=== PATIENT | female | born 1985 | race Caucasian/White ===

== ENCOUNTER → 2018-12-03 | Outpatient (CLI) | payer OTHER | LOC: MERGE 09:04 → FIMAGING 09:04 | PROVIDERS: ATTEND Obstetrics & Gynecology | DX: Z34.03 Encounter for supervision of normal first pregnancy, third trimester (principal); Z3A.33 33 weeks gestation of pregnancy ==

== ENCOUNTER → 2018-12-24 | Outpatient (CLI) | payer OTHER | LOC: FIMAGING 08:33 → MERGE 08:45 | PROVIDERS: ATTEND Obstetrics & Gynecology | DX: Z36.4 Encounter for antenatal screening for fetal growth retardation (principal) ==

== ENCOUNTER 2019-01-10 18:03 | Inpatient (IN) | payer OTHER ==
[2019-01-10] MEDS ORDERED: OLIVE OIL 118 ML BTL MISC PRN (18:24)
[2019-01-10] MEDS ORDERED: OXYTOCIN/RINGERS LACTATE 1,000 ML IV PRN (18:24)
[2019-01-10] MEDS ORDERED: IBUPROFEN 600 MG TAB PO PRN (18:24)
[2019-01-10] MEDS ORDERED: MISOPROSTOL 200 MCG TAB PO PRN (18:24)
[2019-01-10] MEDS ORDERED: TERBUTALINE SULFATE 1 MG/ML VIAL IV PRN (18:24)
[2019-01-10] MEDS ORDERED: LIDOCAINE 1% 300 MG/30 ML SDV SC PRN (18:24)
[2019-01-10] MEDS ORDERED: AMMONIA AROMATIC 1 EACH AMP IH PRN (18:24)
[2019-01-10] MEDS ORDERED: EPSOM SALT 454 GM TP PRN (18:24)
--- NOTE | 2019-01-10 18:24 | PDGENHP ---
History and Physical - Chief Complaint IOL at 39wks, IUGR - History of Present Illness 33 yo G1 today at 38w6d presents for cervical ripening prior to IOL tomorrow at 39 wks for borderline IUGR with abnormal dopplers. She has been closed this week in clinic and is closed again here on arrival. Otherwise uncomplicated other than this issue of growth - EFW 13% following her 20wk scan, had consult with MFM and also found to have abnormal/elevated dopplers. Given that they recommended weekly doppler testing, monthly growth scans, and potentially delivery by 37 weeks. Ultimately those studies were reassuring and by the time she reached 37 wks her dopplers had actually normalized and EFW was stable at 14% - so they pushed the rec for delivery back to 39wks. CMV serologies negative from that workup. She has thyroid assymetry L>R - had endo consult 07/01/18 that revealed a 2.7cm cyst causing that - she now follows with endo ([place]) and plan to f/u as OP PP. Rh negative and received RhoGam at 28 wks. 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 Most recent growth US (12/24/18): Placental location: posterior no previa presentation: vertex Cervix: not well seen MVP: 5.8 cm Measurements: Biparietal diameter: 92 mm 37 weeks, 3 days Head circumference: 335 mm 38 weeks, 3 days Abdominal circumference: 312 mm 35 weeks, 1 days Femur length: 61 mm 31 weeks, 6 days Humerus length: 55 mm 31 weeks, 6 days Transcerebellar diameter: 20 mm 36 weeks, 5 days Average ultrasound age: 35 weeks, 5 days Estimated weight: 2509 gm weight percentile: 14 % labs: O neg Antibody neg RPR NR Rubella immune Hep B neg HIV neg CMV neg Pap ASCUS HPV neg GCC neg AFP neg Innatal normal Glucola 90 Rhogam given 10/29/18 GBS NEGATIVE VZV and Parvo IMMUNE History Information - Allergies/Home Medication List Allergies/Adverse Reactions: No Known Allergies Allergy (Unverified 12/30/18 14:20) I have personally reviewed and updated: family history, medical history, social history, surgical history Past Medical History: Thyroid assymetry/cyst, assymptomatic, Rh neg, HSV1 - Surgical History Reports: no pertinent surgical hx - Family History Positive for: non-pertinent Review of Systems Review of Systems: ROS: 10pt was reviewed & negative except for what was stated in HPI & below Physical Exam Physical Exam: Calm, comfortable, NAD. Abdomen soft, ND/NT, longitudinal lie. SCE closed/30/-2, mid position, medium consistency. FHR 130s, mod johnson, accels present, no decels. Assessment & Plan Assessment: 33 yo G1 at 38w6d here for cervical ripening/IOL for borderline IUGR. IOL: Unfavorable. Cervidil tonight, will be removed at 12 hrs tomorrow AM and rechecked for balloon vs Pitocin. IUGR: Dopplers recently normal with EFW 14% so less of a concern at this point. RH neg: will need screen and RHoGam PRN. Thyroid cyst: Low suspicion for malignancy per endo, f/u PP. HSV1: no meds. Rubella immune, VZV immune. ANABELL
[2019-01-10] MEDS ORDERED: DINOPROSTONE 10 MG VAG SUPP VG ONE (19:06)
[2019-01-10 20:37] LABS: PLATELET COUNT 115 10^3/uL (150-400)
[2019-01-11] MEDS ORDERED: LIDOCAINE 1% 300 MG/30 ML SDV ONE (07:46)
[2019-01-11] MEDS ORDERED: AMMONIA AROMATIC 1 EACH AMP IH ONE (07:46)
[2019-01-11] MEDS ORDERED: OLIVE OIL 118 ML BTL MISC ONE (07:46)
[2019-01-11] MEDS ORDERED: MISOPROSTOL 200 MCG TAB ONE (07:47)
[2019-01-11] MEDS ORDERED: TERBUTALINE SULFATE 1 MG/ML VIAL ONE (07:47)
[2019-01-11] MEDS ORDERED: OXYTOCIN 10 UNIT/ML VIAL ONE (07:47)
[2019-01-11] MEDS ORDERED: ACETAMINOPHEN 500 MG TAB PO ONE (09:11)
--- NOTE | 2019-01-11 09:28 | OBPROG ---
Labor Progress Note Assessment/Plan: Assessment: 33 y/o @ 39 wks for IOL secondary to borderline IUGR and previously abnormal dopplers Rh neg Plan: s/p Cervidil - placed at 1900 01/10 and removed at 0545 01/11 secondary to tachysystole SVE: 50/-2; vtx Vidal bulb placed and inflated with 40 cc NS; pt uncomfortable with placement and having lots of cramping Will give Tylenol ES for cramping per pt request May eat breakfast FHTs - Cat I tracing, reassuring Will start low dose Pitocin when ctx's space out GBS negative, no prophylactic abx needed 01/11/19 09:21 Subjective/Intrapartum Course: 01/11/19 09:28 Pt is tired and was up most of the night with lots of cramping; she slept for about 30 minutes. States good FM. Denies any LOF, but notes some min spotting when she wipes. Objective: 01/10/19 20:05 Patient ABO/Rh O NEGATIVE 01/10/19 20:05 - SVE Dilation (cm): 1 Effacement (%): 50 Station: -2 Membranes: Intact - Contraction Pattern Assessment Current Contraction Pattern: Regular (q2-4 min) - FHR Assessment [place] FHR (bpm): 140 FHR Pattern Variability: Moderate FHR Category: 1 - Procedures Non-surgical Procedures: Other (Specify) (Vidal bulb placement) - AP Antepartum Course: 01/11/19 09:30 Borderline IUGR dx at 20 weeks with EFW 13%; pt followed by MFM and had abnormal dopplers which resolved at 34 weeks (2/21); most recent EFW at 37 weeks was stable at 14%; reassuring testing Thyroid asymmetry L>R; Endo consult; L cyst 1.5 x 2.7cm, stable; asymptomatic Rh negative, received Rhogam 10/29/18 Oxytocin Orders Assessment - Pre-Induction/Augmentation Assessment Gestational Age: 38 week(s) and 6 day(s) ICD10 Worksheet Patient Problems: Problems Problem Status Onset Encounter for induction of labor Acute Placental insufficiency Acute - ICD10 Problem Qualifiers (1) Encounter for induction of labor (2) Placental insufficiency
[2019-01-11] MEDS ORDERED: LR 500 ML IV PRN (11:32)
[2019-01-11] MEDS: LR 1,000 ML IV PRN (11:54)
[2019-01-11] MEDS: OXYTOCIN/LR *LOW DOSE PROTOCOL IV SCH (11:54)
--- NOTE | 2019-01-11 12:51 | OBPROG ---
Labor Progress Note Assessment/Plan: Assessment: 33 y/o @ 39 wks for IOL secondary to borderline IUGR and previously abnormal dopplers Plan: s/p Cervidil - placed at 1900 01/10 and removed at 0545 01/11 secondary to tachysystole s/p urrutia bulb placed and inflated with 40 cc NS at 0900 Pitocin started at noon and currently at 3mu/min; pt justino well with mild cramping FHTs - Cat I tracing, reassuring 01/11/19 12:48 Subjective/Intrapartum Course: 01/11/19 09:28 Pt is tired and was up most of the night with lots of cramping; she slept for about 30 minutes. States good FM. Denies any LOF, but notes some min spotting when she wipes. 01/11/19 12:50 Pt is lying on her side on the couch and states much less discomfort; just some mild cramping noted. Good FM noted. Denies any LOF or VB/spotting. Objective: 01/10/19 20:05 Patient ABO/Rh O NEGATIVE 01/10/19 20:05 - SVE Membranes: Intact - Contraction Pattern Assessment Current Contraction Pattern: Regular (q2-4 min) - FHR Assessment [place] FHR (bpm): 130 FHR Pattern Variability: Moderate FHR Category: 1 - Procedures Non-surgical Procedures: Other (Specify) (Urrutia bulb placement) - AP Antepartum Course: 01/11/19 09:30 Borderline IUGR dx at 20 weeks with EFW 13%; pt followed by MFM and had abnormal dopplers which resolved at 34 weeks (2/21); most recent EFW at 37 weeks was stable at 14%; reassuring testing Thyroid asymmetry L>R; Endo consult; L cyst 1.5 x 2.7cm, stable; asymptomatic Rh negative, received Rhogam 10/29/18 Oxytocin Orders Assessment - Pre-Induction/Augmentation Assessment Gestational Age: 38 week(s) and 6 day(s) ICD10 Worksheet Patient Problems: Problems Problem Status Onset Encounter for induction of labor Acute Placental insufficiency Acute - ICD10 Problem Qualifiers (1) Encounter for induction of labor (2) Placental insufficiency
--- NOTE | 2019-01-11 23:11 | OBPROG ---
Labor Progress Note Assessment/Plan: Assessment: 33 y/o @ 39 wks for IOL secondary to borderline IUGR and previously abnormal dopplers Plan: s/p Cervidil - placed at 1900 01/10 and removed at 0545 01/11 secondary to tachysystole s/p urrutia bulb placed and inflated with 40 cc NS at 0900 and removed at 1900 this evening SVE: 3-4/75/-3; BBOW Attempted AROM but unsuccessful Pitocin at 15 mu/min; cont per protocol Will reassess in 2 hours and attempt AROM and placement of IUPC Pt to get in shower 01/11/19 23:12 Subjective/Intrapartum Course: 01/11/19 09:28 Pt is tired and was up most of the night with lots of cramping; she slept for about 30 minutes. States good FM. Denies any LOF, but notes some min spotting when she wipes. 01/11/19 12:50 Pt is lying on her side on the couch and states much less discomfort; just some mild cramping noted. Good FM noted. Denies any LOF or VB/spotting. 01/11/19 23:08 Pt states only mild cramping, nothing painful. She wants to get in the shower. Objective: 01/10/19 20:05 Patient ABO/Rh O NEGATIVE 01/10/19 20:05 - SVE Dilation (cm): 3 (3-4) Effacement (%): 75 Station: -3 Membranes: Intact - Contraction Pattern Assessment Current Contraction Pattern: Regular (q3-5 min) - FHR Assessment [place] FHR (bpm): 130 FHR Pattern Variability: Moderate FHR Category: 1 - Procedures Non-surgical Procedures: Other (Specify) (Urrutia bulb placement) - AP Antepartum Course: 01/11/19 09:30 Borderline IUGR dx at 20 weeks with EFW 13%; pt followed by MFM and had abnormal dopplers which resolved at 34 weeks (2); most recent EFW at 37 weeks was stable at 14%; reassuring testing Thyroid asymmetry L>R; Endo consult; L cyst 1.5 x 2.7cm, stable; asymptomatic Rh negative, received Rhogam 10/29/18 Oxytocin Orders Assessment - Pre-Induction/Augmentation Assessment Gestational Age: 38 week(s) and 6 day(s) ICD10 Worksheet Patient Problems: Problems Problem Status Onset Encounter for induction of labor Acute Placental insufficiency Acute - ICD10 Problem Qualifiers (1) Encounter for induction of labor (2) Placental insufficiency
--- NOTE | 2019-01-12 01:40 | OBPROG ---
Labor Progress Note Assessment/Plan: Assessment: 33 y/o @ 39 wks for IOL secondary to borderline IUGR and previously abnormal dopplers Plan: s/p Cervidil - placed at 1900 01/10 and removed at 0545 01/11 secondary to tachysystole s/p urrutia bulb placed and inflated with 40 cc NS at 0900 and removed at 1900 this evening SVE: unchanged despite bloody show and pt getting uncomfortable with ctx's Attempted AROM again and unsuccessful Pitocin now at 21 mu/min FHTs - Cat I tracing, reassuring Will reassess in a few hours 01/12/19 01:36 Subjective/Intrapartum Course: 01/11/19 09:28 Pt is tired and was up most of the night with lots of cramping; she slept for about 30 minutes. States good FM. Denies any LOF, but notes some min spotting when she wipes. 01/11/19 12:50 Pt is lying on her side on the couch and states much less discomfort; just some mild cramping noted. Good FM noted. Denies any LOF or VB/spotting. 01/11/19 23:08 Pt states only mild cramping, nothing painful. She wants to get in the shower. 01/12/19 01:39 Pt is s/p a shower and now getting uncomfortable with ctx's, states pain 6/10. She noticed blood on her sheets and again when she used the toilet and lost her mucus plug. Objective: 01/10/19 20:05 Patient ABO/Rh O NEGATIVE 01/10/19 20:05 - SVE Dilation (cm): 3 (3-4) Effacement (%): 75 Station: -3 Membranes: Intact (attempted AROM and unsuccessful) - Contraction Pattern Assessment Current Contraction Pattern: Regular (q2-5 min) - FHR Assessment [place] FHR (bpm): 130 FHR Pattern Variability: Moderate FHR Category: 1 - AP Antepartum Course: 01/11/19 09:30 Borderline IUGR dx at 20 weeks with EFW 13%; pt followed by MFM and had abnormal dopplers which resolved at 34 weeks (2); most recent EFW at 37 weeks was stable at 14%; reassuring testing Thyroid asymmetry L>R; Endo consult; L cyst 1.5 x 2.7cm, stable; asymptomatic Rh negative, received Rhogam 10/29/18 Oxytocin Orders Assessment - Pre-Induction/Augmentation Assessment Gestational Age: 38 week(s) and 6 day(s) ICD10 Worksheet Patient Problems: Problems Problem Status Onset Encounter for induction of labor Acute Placental insufficiency Acute - ICD10 Problem Qualifiers (1) Encounter for induction of labor (2) Placental insufficiency
--- NOTE | 2019-01-12 06:38 | OBPROG ---
Labor Progress Note Assessment/Plan: Assessment: 33 y/o @ 39 wks for IOL secondary to borderline IUGR and previously abnormal dopplers Plan: s/p Cervidil - placed at 1900 01/10 and removed at 0545 01/11 secondary to tachysystole s/p urrutia bulb placed and inflated with 40 cc NS at 0900 and removed at 1900 this evening SVE: unchanged Attempted AROM again and unsuccessful Pitocin now at 24 mu/min FHTs - Cat I tracing, reassuring Signed out patient to light armored reconnaissance officer doctor-Adenike Killian who will be taking over 01/12/19 06:34 Subjective/Intrapartum Course: 01/11/19 09:28 Pt is tired and was up most of the night with lots of cramping; she slept for about 30 minutes. States good FM. Denies any LOF, but notes some min spotting when she wipes. 01/11/19 12:50 Pt is lying on her side on the couch and states much less discomfort; just some mild cramping noted. Good FM noted. Denies any LOF or VB/spotting. 01/11/19 23:08 Pt states only mild cramping, nothing painful. She wants to get in the shower. 01/12/19 01:39 Pt is s/p a shower and now getting uncomfortable with ctx's, states pain 6/10. She noticed blood on her sheets and again when she used the toilet and lost her mucus plug. 01/12/19 06:36 Pt was able to sleep for a few hours, but states pain with ctx's still 6/10. Objective: 01/10/19 20:05 Patient ABO/Rh O NEGATIVE 01/10/19 20:05 - SVE Dilation (cm): 3 (3-4) Effacement (%): 75 (70) Station: -3 Membranes: Intact (attempted AROM and unsuccessful) - Contraction Pattern Assessment Current Contraction Pattern: Regular (q3-4 min) - FHR Assessment [place]ado FHR (bpm): 130 FHR Pattern Variability: Moderate FHR Category: 1 - AP Antepartum Course: 01/11/19 09:30 Borderline IUGR dx at 20 weeks with EFW 13%; pt followed by MFM and had abnormal dopplers which resolved at 34 weeks (2); most recent EFW at 37 weeks was stable at 14%; reassuring testing Thyroid asymmetry L>R; Endo consult; L cyst 1.5 x 2.7cm, stable; asymptomatic Rh negative, received Rhogam 10/29/18 Oxytocin Orders Assessment - Pre-Induction/Augmentation Assessment Gestational Age: 38 week(s) and 6 day(s) ICD10 Worksheet Patient Problems: Problems Problem Status Onset Encounter for induction of labor Acute Placental insufficiency Acute - ICD10 Problem Qualifiers (1) Encounter for induction of labor (2) Placental insufficiency
[2019-01-12] MEDS: LEVOTHYROXINE 25 MCG TAB PO SCH (07:00)
[2019-01-12] MEDS: LR 1,000 ML IV PRN (07:01)
--- NOTE | 2019-01-12 08:40 | OBPROG ---
Labor Progress Note Assessment/Plan: Assessment: 33 y/o @ 39 weeks IOL secondary to S<D and abnormal dopplers earlier in Plan: Successful AROM and placement of IUPC now. Contractions are not adequate now, we will change the pitocin bag and increase dose to achieve adequate contractions. 01/12/19 08:28 Subjective/Intrapartum Course: 01/11/19 09:28 Pt is tired and was up most of the night with lots of cramping; she slept for about 30 minutes. States good FM. Denies any LOF, but notes some min spotting when she wipes. 01/11/19 12:50 Pt is lying on her side on the couch and states much less discomfort; just some mild cramping noted. Good FM noted. Denies any LOF or VB/spotting. 01/11/19 23:08 Pt states only mild cramping, nothing painful. She wants to get in the shower. 01/12/19 01:39 Pt is s/p a shower and now getting uncomfortable with ctx's, states pain 6/10. She noticed blood on her sheets and again when she used the toilet and lost her mucus plug. 01/12/19 06:36 Pt was able to sleep for a few hours, but states pain with ctx's still 6/10. 01/12/19 08:26 Pt rested overnight. She had a light breakfast and is now ready to proceed with increased pitocin and active labor management. Currently contractions are mild. Objective: 01/10/19 20:05 Patient ABO/Rh O NEGATIVE 01/10/19 20:05 - SVE Dilation (cm): 4 Effacement (%): 50 Station: -2 Membranes: AROM, Intact (attempted AROM and unsuccessful) Amniotic Fluid Color: Clear - Contraction Pattern Assessment Current Contraction Pattern: Regular (q3-4 min), Irregular (Q 2 min Mvu) - FHR Assessment [place]ado FHR (bpm): 140 FHR Pattern Variability: Moderate FHR Category: 1 - Procedures Non-surgical Procedures: Amniotomy, Other (Specify) (Vidal bulb placement) - AP Antepartum Course: 01/11/19 09:30 Borderline IUGR dx at 20 weeks with EFW 13%; pt followed by MFM and had abnormal dopplers which resolved at 34 weeks (2/21); most recent EFW at 37 weeks was stable at 14%; reassuring testing Thyroid asymmetry L>R; Endo consult; L cyst 1.5 x 2.7cm, stable; asymptomatic Rh negative, received Rhogam 10/29/18 Oxytocin Orders Assessment - Pre-Induction/Augmentation Assessment Gestational Age: 38 week(s) and 6 day(s) ICD10 Worksheet Patient Problems: Problems Problem Status Onset Encounter for induction of labor Acute Placental insufficiency Acute
[2019-01-12] MEDS: OXYTOCIN/LR *LOW DOSE PROTOCOL IV SCH (08:59)
[2019-01-12] MEDS ORDERED: fentaNYL 2MCG/ML/BUP 0.1% RTU 100 ML BAG EP ONE (10:54)
[2019-01-12] MEDS ORDERED: PHENYLEPHRINE HCL 100 MCG/ML SYR ONE (10:54)
--- NOTE | 2019-01-12 11:25 | PREANESOB ---
Obstetric Pre-Anesthesia Info - General Info : 1 Para: 0 NICKY: 01/18/19 Gestational Age: 38 week(s) and 6 day(s) - Info Status: Full Term, [place]ado Monitors: External FHR Pattern: Reassuring - Labor Status Cervical Dilation per last OB SVE: 4 Station per last OB SVE: -2 Amniotic Fluid Color: Clear Indications for Labor Analgesia: Pain Control Labor Epidural: Proposed Anesthesia Allergies/Adverse Reactions: Allergy/AdvReac Type Severity Reaction Status Date / Time No Known Allergies Allergy Unverified 12/30/18 14:20 Home Medications: Medication Instructions Recorded Levothyroxine 1 tab PO DAILY 01/11/19 Caplet 1 tab PO DAILY 01/11/19 Visit Medications: Generic Name Dose Route Start Last Admin Trade Name Freq PRN Reason Stop Dose Admin Acetaminophen 650 mg 01/11/19 20:13 Tylenol PO 07/10/19 20:12 Q6H PRN Pain, Mild/Fever, Can Take PO Ammonia (Aromatic Spirit) 1 each 01/10/19 18:24 Ammonia Aromatic IH 01/20/19 18:23 ONCE PRN Fainting Oxytocin/Lactated Ringer's 1,000 mls @ 0 mls/hr 01/10/19 18:24 Pitocin 20 Units/Lr (Premix) IV PRN PRN Post bleeding As Directed Oxytocin/Lactated Ringer's 500 mls @ 0 mls/hr 01/11/19 12:00 01/12/19 08:59 Pitocin 30 Units/Lr (Premix) IV 07/10/19 11:59 500 mls CONT MADHURI Administration Protocol Per Protocol Lactated Ringer's 500 mls @ 0 mls/hr 01/11/19 11:32 Lactated Ringers IV 07/10/19 11:31 PRN PRN MATERNAL HYPOTENSION As Directed Ibuprofen 600 mg 01/10/19 18:24 Motrin PO ONCE PRN post , pain Levothyroxine Sodium 25 mcg 01/12/19 06:00 01/12/19 07:00 Synthroid PO 07/11/19 05:59 25 mcg DAILY AT 6AM MADHURI Administration Lidocaine HCl 300 mg 01/10/19 18:24 Lidocaine Hcl 1% SC 07/09/19 18:23 ONCE PRN episiotomy Magnesium Sulfate 454 gm 01/10/19 18:24 Epsom Salt TP 07/09/19 18:23 Q1H PRN perineal discomfort Misoprostol 800 - 1,000 mcg 01/10/19 18:24 Cytotec PO 07/09/19 18:23 ONCE PRN Vaginal Atony/Bleeding Sibley Oil 118 ml 01/10/19 18:24 Sweet Oil MISC 07/09/19 18:23 ONCE PRN perineal massage Terbutaline Sulfate 0.25 mg 01/10/19 18:24 Brethine IV 07/09/19 18:23 ONCE PRN Tachysystole Discontinued Medications Generic Name Dose Route Start Last Admin Trade Name Freq PRN Reason Stop Dose Admin Acetaminophen 1,000 mg 01/11/19 09:11 01/11/19 09:17 Tylenol PO 01/11/19 09:12 1,000 mg ONCE ONE Administration Ammonia (Aromatic Spirit) Confirm 01/11/19 07:46 Ammonia Aromatic Administered 01/11/19 07:47 Dose 1 each IH .STK-MED ONE Dinoprostone 10 mg 01/10/19 19:06 01/11/19 09:43 Cervidil VG 01/10/19 19:07 Not Given ONCE ONE Fentanyl/Bupivacaine HCl Confirm 01/12/19 10:54 Fentanyl/Bupivacaine/Ns 2 Mcg/Ml 0.1% (Premix Administered 01/12/19 10:55 Dose 100 ml EP .STK-MED ONE Lactated Ringer's 1,000 mls @ 0 mls/hr 01/10/19 18:24 01/12/19 07:01 Lr IV 01/11/19 18:23 1,000 mls PRN PRN Administration SEE PROTOCOL CONDITIONS Protocol Per Protocol Lidocaine HCl Confirm 01/11/19 07:46 Lidocaine Hcl 1% Administered 01/11/19 07:47 Dose 300 mg .ROUTE .STK-MED ONE Misoprostol Confirm 01/11/19 07:47 Cytotec Administered 01/11/19 07:48 Dose 1,000 mcg .ROUTE .STK-MED ONE Sibley Oil Confirm 01/11/19 07:46 Sweet Oil Administered 01/11/19 07:47 Dose 118 ml MISC .STK-MED ONE Oxytocin Confirm 01/11/19 07:47 Pitocin Administered 01/11/19 07:48 Dose 40 unit .ROUTE .STK-MED ONE Phenylephrine HCl Confirm 01/12/19 10:54 Neosynephrine Administered 01/12/19 10:55 Dose 1,000 mcg .ROUTE .STK-MED ONE Terbutaline Sulfate Confirm 01/11/19 07:47 Brethine Administered 01/11/19 07:48 Dose 1 mg .ROUTE .STK-MED ONE - Anesthesia History Response to Local Anesthetics: Normal Anesthesia & Operative History: No Prior Problems - Vital Signs Height/Weight (Nursing): Height 172.72 cm Weight 70.76 kg - Focused Exam Neck exam: FROM Mallampati Score: Class 2 Mouth exam: normal dental/mouth exam Pulmonary: no respiratory distress, no rales or rhonchi, clear to auscultation Cardiovascular: regular rate and rhythym, no murmur, rub, or gallop Labs: 01/10/19 20:05 Patient ABO/Rh O NEGATIVE 01/10/19 20:05
[2019-01-12] MEDS ORDERED: LR 500 ML IV SCH (11:30)
[2019-01-12] MEDS ORDERED: PHENYLEPHRINE HCL 100 MCG/ML SYR IVP PRN (11:40)
--- NOTE | 2019-01-12 11:40 | OBPROG ---
Labor Progress Note Assessment/Plan: Assessment: 33 y/o @ 39 weeks IOL secondary to S<D and abnormal dopplers earlier in Plan: Good cervical progression after AROM. Pt is now comfortable with her epidural. We will continue pitocin and allow patient to rest. Increase dose to attain adequate Mu. 01/12/19 08:28 01/12/19 11:35 Subjective/Intrapartum Course: 01/11/19 09:28 Pt is tired and was up most of the night with lots of cramping; she slept for about 30 minutes. States good FM. Denies any LOF, but notes some min spotting when she wipes. 01/11/19 12:50 Pt is lying on her side on the couch and states much less discomfort; just some mild cramping noted. Good FM noted. Denies any LOF or VB/spotting. 01/11/19 23:08 Pt states only mild cramping, nothing painful. She wants to get in the shower. 01/12/19 01:39 Pt is s/p a shower and now getting uncomfortable with ctx's, states pain 6/10. She noticed blood on her sheets and again when she used the toilet and lost her mucus plug. 01/12/19 06:36 Pt was able to sleep for a few hours, but states pain with ctx's still 6/10. 01/12/19 08:26 Pt rested overnight. She had a light breakfast and is now ready to proceed with increased pitocin and active labor management. Currently contractions are mild. 01/12/19 11:33 Pt is now feeling more comfortable with her epidural. She was feeling very strong contractions and pressure. Objective: 01/10/19 20:05 Patient ABO/Rh O NEGATIVE 01/10/19 20:05 - SVE Dilation (cm): 6 Effacement (%): 90 Station: 0 Membranes: AROM, Intact (attempted AROM and unsuccessful) Amniotic Fluid Color: Clear - Contraction Pattern Assessment Current Contraction Pattern: Regular (Q 2-3), Irregular (Q 2 min Mvu) - FHR Assessment [place] FHR (bpm): 140 FHR Pattern Variability: Moderate FHR Category: 1 - Procedures Non-surgical Procedures: Amniotomy, IUPC, Other (Specify) (Vidal bulb placement) - AP Antepartum Course: 01/11/19 09:30 Borderline IUGR dx at 20 weeks with EFW 13%; pt followed by MFM and had abnormal dopplers which resolved at 34 weeks (2/); most recent EFW at 37 weeks was stable at 14%; reassuring testing Thyroid asymmetry L>R; Endo consult; L cyst 1.5 x 2.7cm, stable; asymptomatic Rh negative, received Rhogam 10/29/18 Oxytocin Orders Assessment - Pre-Induction/Augmentation Assessment Gestational Age: 38 week(s) and 6 day(s) ICD10 Worksheet Patient Problems: Problems Problem Status Onset Encounter for induction of labor Acute Placental insufficiency Acute
[2019-01-12] MEDS ORDERED: fentaNYL 2MCG/ML/BUP 0.1% RTU 100 ML EP SCH (12:00)
[2019-01-12] MEDS ORDERED: HYDROCORTISONE 0.5% CREAM TP PRN (15:47)
[2019-01-12] MEDS ORDERED: oxyCODONE IR 5 MG TAB PO PRN (15:47)
[2019-01-12] MEDS ORDERED: ACETAMINOPHEN 325 MG TAB PO PRN (15:47)
[2019-01-12] MEDS ORDERED: SIMETHICONE 80 MG TAB CHEW PO PRN (15:47)
--- NOTE | 2019-01-12 15:52 | OBDEL ---
Info Type: Vaginal Presentation at Delivery: Vertex L&D Analgesia/Anesthesia Type: Epidural GBS+: No Intrapartum Medications: Generic Name Dose Route Start Last Admin Trade Name Freq PRN Reason Stop Dose Admin Oxytocin/Lactated Ringer's 500 mls @ 0 mls/hr 01/11/19 12:00 01/12/19 08:59 Pitocin 30 Units/Lr (Premix) IV 07/10/19 11:59 500 mls CONT MADHURI Administration Protocol Per Protocol Levothyroxine Sodium 25 mcg 01/12/19 06:00 01/12/19 07:00 Synthroid PO 07/11/19 05:59 25 mcg DAILY AT 6AM MADHURI Administration Discontinued Medications Generic Name Dose Route Start Last Admin Trade Name Freq PRN Reason Stop Dose Admin Acetaminophen 1,000 mg 01/11/19 09:11 01/11/19 09:17 Tylenol PO 01/11/19 09:12 1,000 mg ONCE ONE Administration Dinoprostone 10 mg 01/10/19 19:06 01/11/19 09:43 Cervidil VG 01/10/19 19:07 Not Given ONCE ONE Lactated Ringer's 1,000 mls @ 0 mls/hr 01/10/19 18:24 01/12/19 07:01 Lr IV 01/11/19 18:23 1,000 mls PRN PRN Administration SEE PROTOCOL CONDITIONS Protocol Per Protocol - Hospital Course Intrapartum: 01/11/19 09:28 Pt is tired and was up most of the night with lots of cramping; she slept for about 30 minutes. States good FM. Denies any LOF, but notes some min spotting when she wipes. 01/11/19 12:50 Pt is lying on her side on the couch and states much less discomfort; just some mild cramping noted. Good FM noted. Denies any LOF or VB/spotting. 01/11/19 23:08 Pt states only mild cramping, nothing painful. She wants to get in the shower. 01/12/19 01:39 Pt is s/p a shower and now getting uncomfortable with ctx's, states pain 6/10. She noticed blood on her sheets and again when she used the toilet and lost her mucus plug. 01/12/19 06:36 Pt was able to sleep for a few hours, but states pain with ctx's still 03/22. 01/12/19 08:26 Pt rested overnight. She had a light breakfast and is now ready to proceed with increased pitocin and active labor management. Currently contractions are mild. 01/12/19 11:33 Pt is now feeling more comfortable with her epidural. She was feeling very strong contractions and pressure. Indications for Delivery: Growth Restriction w/Abnormal Doppler studies Vaginal Delivery - Delivery Provider Delivery Physician/CNM: Adenike Killian - Labor and Delivery Onset of Contractions Date: 01/12/19 Onset of Contractions Time: 09:19 Onset of Contractions Type: Induced Rupture of Membranes Date: 01/12/19 Rupture of Membranes Time: 08:19 Rupture of Membranes Type: Artificial Amniotic Fluid Color: Clear Dilation Complete Date: 01/12/19 Dilation Complete Time: 14:34 Placenta Delivery Date: 01/12/19 Placenta Delivery Time: 15:27 Total Hours of Labor: 6 Non-surgical Procedures: Amniotomy, IUPC, Other (Specify) (Vidal bulb placement) Laceration: 1st Degree, Other (Specify) (right labial) Repair: 2-0, 3-0, Vicryl Vaginal Sponge Count Correct: Yes Vaginal Needle Count Correct: Yes Vaginal Sweep Performed: Yes EBL: 250 Delivery Events: None - Medications Labor Augmentation/Induction Methods Used: Pitocin, Vidal Bulb, Cervadil Labor Augmentation/Induction Indication: IUGR [place] Data NICKY: 01/18/19 Gestational Age: 39 week(s) and 1 day(s) [facility] Delivery Date: 01/12/19 Delivery Time: 15:22 Sex of : Female Score (1 Min): 8 Score (5 Min): 9 ICD10 Worksheet Patient Problems: Problems Problem Status Onset Encounter for induction of labor Acute Placental insufficiency Acute (spontaneous vaginal delivery) Acute - ICD10 Problem Qualifiers (1) (spontaneous vaginal delivery)
[2019-01-12] MEDS: ACETAMINOPHEN 325 MG TAB PO PRN (18:31)
[2019-01-13] MEDS: IBUPROFEN 600 MG TAB PO PRN ×4 (00:30→18:35)
[2019-01-13] MEDS: ACETAMINOPHEN 325 MG TAB PO PRN ×4 (00:31→18:34)
[2019-01-13] MEDS: LEVOTHYROXINE 25 MCG TAB PO SCH (06:22)
--- NOTE | 2019-01-13 08:20 | POSTANESTH ---
Post Anesthetic Evaluation Cardiovascular Status: Normal, Stable Respiratory Status: Normal, Stable Level of Consciousness/Mental Status: Can Participate in Eval, Alert and Oriented Pain Control: Adequate, Prn Tx Ordered Nausea/Vomiting Control: Adequate, Prn Tx Ordered Complications Possibly Related to Anesthesia: None Noted (Placenta Delivery Time = Epidural End Time 01/12/19 @15:27)
[2019-01-13] MEDS: DOCUSATE SODIUM 100 MG CAP PO PRN ×2 (10:06→20:47)
--- NOTE | 2019-01-13 14:33 | OBPP ---
Progress Note Assessment/Plan: Assessment: 34 G1 PPD#1 s/p , doing well. Plan: Continue routine pp cares. Anticipate dc home tomorrow. Destiny Welsh MD, FACOG 01/13/19 15:49 Subjective/ Course: Pt doing well. Ambulating, voiding, justino reg diet all well. Mod lochia. Working on . 01/13/19 15:53 Objective: 01/10/19 20:05 Patient ABO/Rh O NEGATIVE 01/10/19 20:05 Temp Pulse Resp BP Pulse Ox 36.6 C 74 16 97/69 L 98 01/13/19 04:32 01/13/19 04:32 01/13/19 04:32 01/13/19 04:32 01/13/19 04:32 gen - pleasant, NAD CV - RRR chest - CTAB abd - soft, +BS, fundus firm at u-2 ext - calves nt, trace edema Uterine Position/Fundal Height: Umbilicus -2 Uterine Tone: Firm
[2019-01-14] MEDS: IBUPROFEN 600 MG TAB PO PRN ×2 (02:39→10:22)
[2019-01-14] MEDS: ACETAMINOPHEN 325 MG TAB PO PRN ×2 (02:39→10:22)
[2019-01-14] MEDS: LEVOTHYROXINE 25 MCG TAB PO SCH (05:20)
[2019-01-14] MEDS: DOCUSATE SODIUM 100 MG CAP PO PRN (10:22)
--- NOTE | 2019-01-14 11:08 | OBPP ---
Progress Note Assessment/Plan: Assessment: PPD 2 s/p Plan: D/C home 01/14/19 11:06 Subjective/ Course: Pt doing well. Ambulating, voiding, justino reg diet all well. Mod lochia. Working on . 01/13/19 15:53 01/14/19 11:06 Pt doing well. bld is light. urinating fine and having good control. latch is great - really hasn't slept much. ready for d/c Objective: 01/10/19 20:05 Patient ABO/Rh O NEGATIVE 01/10/19 20:05 Temp Pulse Resp BP Pulse Ox 36.7 C 64 16 103/63 96 01/13/19 20:00 01/13/19 20:00 01/13/19 20:00 01/13/19 20:00 01/13/19 20:00 Uterine Position/Fundal Height: Umbilicus -2 Uterine Tone: Firm Physical Exam - Physical Exam Abdomen: non-tender, soft, other (FF at umb -2) Extremities: non-tender, pedal edema (mild - none) Skin: normal color, warm/dry Neuro/Psych: alert, normal mood/affect
--- NOTE | 2019-01-14 11:10 | OBGCSDC ---
General Delivery Information - General Info : 1 Para: 1 Abortions: 0 Type: Vaginal L&D Analgesia/Anesthesia Type: Epidural Admission Date: 01/10/19 Labs: Patient ABO/Rh O NEGATIVE 01/10/19 20:05 Hct 37.6 % (38.0-47.0) L 01/10/19 20:05 - Hospital Course Antepartum: 01/11/19 09:30 Borderline IUGR dx at 20 weeks with EFW 13%; pt followed by MFM and had abnormal dopplers which resolved at 34 weeks (2/21); most recent EFW at 37 weeks was stable at 14%; reassuring testing Thyroid asymmetry L>R; Endo consult; L cyst 1.5 x 2.7cm, stable; asymptomatic Rh negative, received Rhogam 10/29/18 Intrapartum: 01/11/19 09:28 Pt is tired and was up most of the night with lots of cramping; she slept for about 30 minutes. States good FM. Denies any LOF, but notes some min spotting when she wipes. 01/11/19 12:50 Pt is lying on her side on the couch and states much less discomfort; just some mild cramping noted. Good FM noted. Denies any LOF or VB/spotting. 01/11/19 23:08 Pt states only mild cramping, nothing painful. She wants to get in the shower. 01/12/19 01:39 Pt is s/p a shower and now getting uncomfortable with ctx's, states pain 6/10. She noticed blood on her sheets and again when she used the toilet and lost her mucus plug. 01/12/19 06:36 Pt was able to sleep for a few hours, but states pain with ctx's still 6/10. 01/12/19 08:26 Pt rested overnight. She had a light breakfast and is now ready to proceed with increased pitocin and active labor management. Currently contractions are mild. 01/12/19 11:33 Pt is now feeling more comfortable with her epidural. She was feeling very strong contractions and pressure. : Pt doing well. Ambulating, voiding, justino reg diet all well. Mod lochia. Working on . 01/13/19 15:53 01/14/19 11:06 Pt doing well. bld is light. urinating fine and having good control. latch is great - really hasn't slept much. ready for d/c Vaginal - Delivery Provider Delivery Physician/CNM: Adenike Killian - Diagnosis Labor: Induced Rupture of Membranes Type: Artificial Amniotic Fluid Color: Clear Laceration: 1st Degree, Other (Specify) (right labial) Repair: 2-0, 3-0, Vicryl Delivery Events: None - Procedures Non-surgical Procedures: Amniotomy, IUPC, Other (Specify) (Vidal bulb placement) - Delivery Non-surgical Procedures: Amniotomy, IUPC, Other (Specify) (Vidal bulb placement) EBL: 250 Data NICKY: 01/18/19 Gestational Age: 39 week(s) and 3 day(s) [facility] Delivery Date: 01/12/19 Delivery Time: 15:22 Sex of Infant: Female Weight (gm): 2800 kg Score (1 Min): 8 Score (5 Min): 9 Discharge Information - Discharge Information Condition: Good Instruction/Follow Up: See Instruction Sheet, Two Weeks (2-4 wks with therapist , 6 wks with BP), Six Weeks (with BP)
[2019-01-14 12:24] VITALS: BP 101/66
== END 2019-01-14 13:36 | disposition home or self-care (01) | DRG 806 ==
LOC: OBSVTOIN 18:03 → FLD 18:03 → FOB 01-12 18:17
PROVIDERS: ADMIT Obstetrics & Gynecology; ATTEND Obstetrics & Gynecology
PROC: 0U7C7ZZ Dilation of Cervix, Via Natural or Artificial Opening (ICD-10-PCS; 2019-01-11)
PROC: 3E033VJ Introduction of Other Hormone into Peripheral Vein, Percutaneous Approach (ICD-10-PCS; 2019-01-11)
PROC: 10907ZC Drainage of Amniotic Fluid, Therapeutic from Products of Conception, Via Natural or Artificial Opening (ICD-10-PCS; principal; 2019-01-12)
PROC: 10E0XZZ Delivery of Products of Conception, External Approach (ICD-10-PCS; principal; 2019-01-12)
PROC: 0HQ9XZZ Repair Perineum Skin, External Approach (ICD-10-PCS; principal; 2019-01-12)
DX: O36.5930 Maternal care for other known or suspected poor fetal growth, third trimester, not applicable or unspecified (principal); O98.52 Other viral diseases complicating childbirth; Z37.0 Single live birth; Z3A.39 39 weeks gestation of pregnancy; O99.284 Endocrine, nutritional and metabolic diseases complicating childbirth; E04.1 Nontoxic single thyroid nodule; B00.9 Herpesviral infection, unspecified; O70.0 First degree perineal laceration during delivery
CPT/HCPCS: G0463; J2370; J2590; J3105